=== PATIENT | female | born 1995 | race Caucasian/White ===

== ENCOUNTER 2016-06-23 07:45 | Emergency (ER) | payer OTHER ==
[2016-06-23 10:18] LABS: HEMOGLOBIN 12.7 gm/dl (12.3-15.3); RED BLOOD COUNT 4.64 M/UL (4.00-5.10)
[2016-06-23 10:37] LABS: BUN/CREATININE RATIO 14 (0-10)
== END 2016-06-23 14:44 | disposition home or self-care (01) ==
LOC: ER1 07:45
PROVIDERS: Physician Assistant
DX: O23.41 Unspecified infection of urinary tract in pregnancy, first trimester (principal); Z3A.10 10 weeks gestation of pregnancy; Z79.899 Other long term (current) drug therapy
CPT/HCPCS: 36415; 76815; 80048; 81001; 84702; 85025; 86900; 86901; 87210; 96360; 99284

== ENCOUNTER → 2016-08-17 | Outpatient (CLI) | payer OTHER | LOC: HEART 5 08-15 14:00 | DX: R07.89 Other chest pain (principal); R06.02 Shortness of breath | CPT/HCPCS: 93306 ==

== ENCOUNTER 2020-08-03 12:28 | Emergency (ER) | payer OTHER ==
[~2020-08-03 12:28] MED LIST: COLACE 100MG C100 MG PO; IBUPROFEN600 MG PO; LORTAB 5-325 M1 EACH PO
== END 2020-08-03 15:56 | disposition home or self-care (01) ==
LOC: ER1 12:28
DX: R51.9 Headache, unspecified (principal)
CPT/HCPCS: 84703; 96374; 96375; 99284; J1200; J1885; J2765

== ENCOUNTER → 2021-03-10 | Outpatient (CLI) | payer OTHER | LOC: EXRD 10:26 | DX: R05.9 Cough, unspecified (principal); U09.9 Post COVID-19 condition, unspecified | CPT/HCPCS: 71046 ==

== ENCOUNTER 2021-08-13 09:02 | Emergency (ER) | payer OTHER ==
[2021-08-13 10:10] LABS: HEMOGLOBIN 12.1 gm/dl (12.3-15.3); RED BLOOD COUNT 4.41 M/UL (4.00-5.10); WHITE BLOOD COUNT 7.4 K/UL (4.5-11.0)
[2021-08-13 10:40] LABS: BUN/CREATININE RATIO 14 (0-10)
[2021-08-13] MEDS ORDERED: MACROBID 100 M100 MG PO (12:14)
== END 2021-08-13 13:00 | disposition home or self-care (01) ==
LOC: ER1 09:02
PROVIDERS: Emergency Medicine
DX: O99.891 Other specified diseases and conditions complicating pregnancy (principal); R42 Dizziness and giddiness; Z3A.16 16 weeks gestation of pregnancy
CPT/HCPCS: 76805; 80053; 81001; 82550; 82553; 84484; 84702; 85025; 87086; 93005; 99284; J7030